=== PATIENT | male | born 1975 | race Caucasian/White ===

== ENCOUNTER 2016-06-24 08:23 | Emergency (ER) | payer OTHER ==
[2016-06-24] MEDS ORDERED: LIDOCAINE 1%/EPINEPHRINE INJ 20 ML VIAL INJ ONE (08:47)
[2016-06-24] MEDS ORDERED: OXYCODONE-ACETAMINOPHEN 5-325 MG TABLET PO ONE (08:47)
--- NOTE | 2016-06-24 08:49 | ER Document Report ---
HPI - HPI Patient complains to provider of: wrist laceration Onset: Just prior to arrival Onset/Duration: Sudden Quality of pain: Sharp Pain Level: 5 Context: Patient states he was using a handsaw to prune some bushes. Patient states that it was a new small and he cut into his left wrist. Patient states his tetanus is currently up-to-date. Patient reports difficulty with fully extending his left hand. Associated Symptoms: Other - Left wrist laceration Exacerbated by: Movement Relieved by: Denies Similar symptoms previously: No Recently seen / treated by doctor: No - ROS ROS below otherwise negative: Yes Systems Reviewed and Negative: Yes All other systems reviewed and negative - CONSTITUTIONAL Constitutional: DENIES: Fever, Chills - MUSCULOSKELETAL Musculoskeletal: REPORTS: Extremity pain - DERM Skin Color: Normal Skin Problems: Laceration Past Medical History - General Information source: Patient - Social History Smoking Status: Never Smoker Chew tobacco use (# tins/day): No Frequency of alcohol use: None Drug Abuse: None 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 Lives with: Family Family History: Reviewed & Not Pertinent Patient has suicidal ideation: No Patient has homicidal ideation: No - Past Medical History Cardiac Medical History: Reports: Hx Hypertension Pulmonary Medical History: Reports: Hx Sleep Apnea Endocrine Medical History: Reports: Hx Diabetes Mellitus Type 2 Renal/ Medical History: Denies: Hx Peritoneal Dialysis Surgical Hx: Negative - Immunizations Hx Diphtheria, Pertussis, Tetanus Vaccination: Yes Vertical Provider Document - CONSTITUTIONAL Agree With Documented VS: Yes Exam Limitations: No Limitations General Appearance: WD/WN, No Apparent Distress - INFECTION CONTROL TRAVEL OUTSIDE OF THE [place] IN LAST 30 DAYS: No - HEENT HEENT: Atraumatic, Normocephalic - NECK Neck: Normal Inspection, Supple - RESPIRATORY Respiratory: Breath Sounds Normal, No Respiratory Distress O2 Sat by Pulse Oximetry: 96 - CARDIOVASCULAR Cardiovascular: Regular Rate, Regular Rhythm Pulses: Normal: Radial - MUSCULOSKELETAL/EXTREMETIES Musculoskeletal/Extremeties: MAEW - NEURO Level of Consciousness: Awake, Alert, Appropriate - DERM Integumentary: Warm, Dry, Laceration - Irregular laceration to medial aspect of left wrist Course - Re-evaluation Re-evalutation: 06/24/16 11:19 Patient declines a wound closure without having orthopedic consultation, patient is wanting to have his surgery performed today. Patient does not want to have wound closed and then to have to have a follow-up surgery to repair the injured tendon. Call placed to [facility] for consultation. 06/24/16 11:[address] Fried at [facility], does not feel that patient requires emergent transfer. Recommend suturing wound closed, placing patient on several days of antibiotics and splinting his wrist. Recommends having patient call the office for follow-up appointment. - Vital Signs Vital signs: Temp Pulse Resp BP Pulse Ox 98.1 F 92 18 136/72 H 96 06/24/16 08:32 06/24/16 08:32 06/24/16 08:32 06/24/16 08:32 06/24/16 08:32 - Diagnostic Test Radiology reviewed: Reports reviewed Procedures - Laceration/Wound Repair Left Wrist Wound length (cm): 8.5 Wound's Depth, Shape: Irregular, Flap Anesthetic type: 1% Lidocaine w/epi Wound explored: Contaminated, Foreign body removed - Small bits of debris removed Irrigated w/ Saline (mLs): 1,200 Wound Repaired With: Sutures Suture Size/Type: 5:0, Nylon Number of Sutures: 7 Post-procedure wound care: Sterile dressing applied, Splint applied Post-procedure NV exam normal: No - no change from preprocedure her vascular exam, patient with weakened dorsif Complications: No Discharge - Discharge Clinical Impression: Tendon laceration Laceration of wrist Qualifiers: Encounter type: initial encounter Laterality: left Qualified Code(s): S61.512A - Laceration without foreign body of left wrist, initial encounter Condition: Stable Disposition: HOME, SELF-CARE Instructions: Prophylactic Antibiotic ([facility]), Laceration Care ([facility]), Oral Narcotic Medication ([facility]), Splint Precautions ([facility]), Tendon Laceration Referral ([facility]) Additional Instructions: Return immediately for any new or worsening symptoms Followup with your primary care provider, call tomorrow to make a followup appointment Follow up with an orthopedic hand specialist for further management. Call them today to make a follow-up appointment Your tendon injury will require surgical treatment. An orthopedic hand specialist can perform this procedure for you. Prescriptions: Amox Tr/Potassium Clavulanate [Augmentin 875-125 Tablet] 1 tab PO BID 7 Days Oxycodone HCl/Acetaminophen [Percocet 5-325 mg Tablet] 1 - 2 tab PO ASDIR PRN # 15 tablet PRN Reason: Forms: Return to Work Referrals: PILAR DIAS MD [Primary Care Provider] - Follow up as needed JIL CHILDS DO [ACTIVE STAFF] - Follow up in 3-5 days JORGE FRIED MD [NO LOCAL MD] - Follow up as needed
[2016-06-24] MEDS ORDERED: AMOXICILLIN TR/POT CLAVULANATE 500-125 MG TAB PO ONE (11:46)
[2016-06-24 13:34] VITALS: BP 133/83
== END 2016-06-24 13:38 | disposition home or self-care (01) ==
LOC: ER 08:23
PROC: 0HQEXZZ Repair Left Lower Arm Skin, External Approach (ICD-10-PCS; principal; 2016-06-24)
DX: S61.512A Laceration without foreign body of left wrist, initial encounter (principal); S66.922A Laceration of unspecified muscle, fascia and tendon at wrist and hand level, left hand, initial encounter; W27.0XXA Contact with workbench tool, initial encounter; Y93.H2 Activity, gardening and landscaping; I10 Essential (primary) hypertension; E11.9 Type 2 diabetes mellitus without complications
CPT/HCPCS: 99283; 73110; 12004; J3490

== ENCOUNTER 2016-06-28 11:30 | Day surgery (SDC) | payer OTHER ==
[~2016-06-28 11:30] MED LIST: CEFAZOLIN 2 GM/D5W RTU 2 GM/50 ML RTUPB IV PRN; KETOROLAC TROMETHAMINE 60 MG/2 ML SDV ONE; LIDOCAINE 2% INJ-PF (20 MG/ML) 10 ML AMPUL ONE; METOCLOPRAMIDE HCL INJ/PF 10 MG/2 ML SDV ONE; ONDANSETRON HCL INJ/PF 4 MG/2 ML SDV ONE; PHENYLEPHRINE HCL INJ/PF 10 MG/1 ML SDV ONE; SUCCINYLCHOLINE CHLORIDE INJ 200 MG/10 ML VIAL ONE
[2016-06-28 12:24] LABS: MEAN CORPUSCULAR HEMOGLOBIN 30.8 pg (27.0-33.4); MEAN CORPUSCULAR HGB CONC 34.7 g/dL (32.0-36.0); MEAN CORPUSCULAR VOLUME 89 fl (80-97); RED BLOOD COUNT 5.19 10^6/uL (4.35-5.55); RED CELL DISTRIBUTION WIDTH 13.2 % (11.5-14.0); WHITE BLOOD COUNT 7.7 10^3/uL (4.0-10.5)
[2016-06-28 12:45] LABS: ANION GAP 17 (5-19); BLOOD UREA NITROGEN 21 mg/dL (7-20); CALCIUM 10.3 mg/dL (8.4-10.2); CARBON DIOXIDE 23 mmol/L (22-30); CHLORIDE 105 mmol/L (98-107); CREATININE RESULT 0.95 mg/dL (0.52-1.25); GLUCOSE 94 mg/dL (75-110); POTASSIUM 5.1 mmol/L (3.6-5.0); SODIUM 144.8 mmol/L (137-145)
[2016-06-28] MEDS ORDERED: BUPIVACAINE HCL 0.5 % INJ/PF 30 ML SDV ONE (14:33)
[2016-06-28] MEDS ORDERED: FENTANYL CITRATE INJ/PF 250 MCG/5 ML AMPULE ONE (14:39)
[2016-06-28] MEDS ORDERED: PROPOFOL INJ 200 MG/20 ML VIAL IV ONE (14:40)
[2016-06-28] MEDS ORDERED: MIDAZOLAM 2 MG/2 ML INJ ONE (14:40)
[2016-06-28] MEDS ORDERED: FENTANYL CITRATE INJ/PF 100 MCG/2 ML AMPUL ONE ×2 (14:42→16:59)
[2016-06-28] MEDS ORDERED: BACITRACIN INJ 50,000 UNIT VIAL ONE (15:04)
[2016-06-28] MEDS ORDERED: MORPHINE SULFATE 10 MG/ML INJ IV PRN ×2 (15:20→17:06)
[2016-06-28] MEDS ORDERED: PROMETHAZINE HCL INJ 25 MG/1 ML VIAL IV PRN ×2 (15:20)
[2016-06-28] MEDS ORDERED: MEPERIDINE HCL/PF INJ 25 MG/1 ML DISP.SYRIN IV PRN (15:20)
[2016-06-28] MEDS ORDERED: FENTANYL CITRATE INJ/PF 100 MCG/2 ML AMPUL IV PRN ×3 (15:20)
[2016-06-28] MEDS ORDERED: DIPHENHYDRAMINE HCL 50 MG/ML VIAL IV PRN (15:20)
[2016-06-28] MEDS ORDERED: ACETAMINOPHEN 100 ML IV ONE (15:32)
--- NOTE | 2016-06-28 17:05 | Operative Report ---
Operative Report DATE OF SURGERY: 06/28/16 PREOPERATIVE DIAGNOSIS: Left Wrist Laceration POSTOPERATIVE DIAGNOSIS: Left Wrist ECRL/ECRB/EPB Laceration. Partial Superficial Radial Nerve Laceration OPERATION: Exploration Left Wrist. Repair of EPB/ECRL/ECRB Zone VII. Repair of Superficial Radial Nerve w/ Nerv Conduit. Wound Closure SURGEON: JIL CHILDS ANESTHESIA: GA COMPLICATIONS: None ESTIMATED BLOOD LOSS: Minimal PROCEDURE: Indication for above procedure: 41-year-old male who sustained a inadvertent laceration to his left wrist. Patient was seen at the emergency room where the area was debrided and loosely closed. Patient was given IV antibiotics tetanus is started on Augmentin. He followed up at my office at which point we discussed physical examination findings and treatment options. After discussing operative versus nonoperative intervention the joint decision was made to proceed with operative exploration with repair as indicated. Procedure In Detail: Patient was seen and evaluated in the preoperative holding area. The LEFT upper extremity was initialized and marked. Patient received 2g of Ancef IV for bacterial prophylaxis. Patient was taken back to the operative room where transferred to the operative table and placed under general anesthesia. Once they were adequately anesthetized a nonsterile tourniquet was placed on the upper extremity. A surgical team debriefing was performed ensuring all instrumentation was available, the surgical procedure was discussed with possible concerns reviewed. The upper extremity was prepped with chlorhexidine and alcohol and draped in a sterile fashion. A timeout was done identifying correct patient, procedure and extremity everyone in attendance agree with this and verbalized no concerns. The extremity was exsanguinated the tourniquet was inflated to 200 mmHg. Patient's laceration was opened proximally and distally by 1 cm. The intervening stitches were removed. Blunt dissection was performed down to the level of the extensor retinaculum. There is no involvement of the extensor retinaculum of the fourth dorsal compartment. Identification of the EPL proximally and distally demonstrated no evidence of EPL disruption. There was complete disruption of the second dorsal compartment components ECRL/ECRB. There is complete disruption of the EPB as well. No evidence of disruption of the APL or radial artery. There was partial laceration of the ulnar-most branch of the superficial radial nerve. I first repaired the ECRB/ECRL the proximal stump was identified and retracted into the wound. Wrist was held in extension while a Silverskiold suture was utilized with 3-0 Ethibond. This provided adequate fixation my extensor repair against gravity there was ample forced. The first dorsal compartment was opened and a repaired the EPB once again with a 3-0 Ethibond utilizing a Silverskiold suture configuration. I then proceeded with superficial radial nerve repair. Partial disruption of the superficial radial nerves ulnar aspect was identified. Given the location and high propensity for neuropathic pain I proceeded with placement of a Axogen 3 x 15 mm nerve connector to prophylactically protect against neuropathic pain and to allow possible nerve regeneration. The nerve connector was secured with 6-0 nylon suture in a horizontal mattress configuration. The wound was copiously irrigated with normal saline. The skin edges were irregular with portions that were not viable these edges were excised to a smooth contour. The wound was then closed with interrupted 3-0 nylon suture. 20 mL of 0.5% Marcaine without epinephrine was injected for postoperative pain control. We will was dressed with Xeroform 4 x 4's and patient was placed in a volar splint with the wrist at 20 of extension and a thumb spica extension of the thumb CMC/MCP joint at neutral position and the IP joint free. Tourniquet was deflated. Patient had normal capillary refill less than 2 seconds. Sponge counts, instrument counts, needle counts counts were correct. Patient was then awoken from anesthesia. Transferred from the operating room table to the operating room stretcher. There was no intraoperative complications patient tolerated procedure well stable to PACU. Postoperative plan: Patient will follow-up in the office in 10-14 days at which point we will proceed with wound check. Patient will be set up for occupational therapy and will begin as per Ghazala protocol extensor tendon repair zone VII.
[2016-06-28] MEDS ORDERED: ONDANSETRON HCL INJ/PF 4 MG/2 ML SDV IV PRN (17:06)
[2016-06-28] MEDS ORDERED: OXYCODONE-ACETAMINOPHEN 5-325 MG TABLET PO PRN (17:06)
--- NOTE | 2016-06-28 17:06 | PDOC DISCHARGE SUMMARY ---
Discharge Summary (SDC) - Discharge Final Diagnosis: Extensor Tendon Laceration Left Wrist Date of Surgery: 06/28/16 Discharge Date: 06/28/16 Condition: Good Treatment or Instructions: Schedule Follow Up w/ Dr. Warner Chance @ [facility] for Surgery to be seen in 10-14 days or as scheduled [place]: [place]: [place]: Keep splint clean/dry/intact. Ice and elevate May begin finger range of motion attempting to make full fist. Stool softener of choice when on pain medication. Prescriptions: Oxycodone HCl/Acetaminophen [Percocet 7.5-325 Mg Tablet] 1 each PO Q4 #45 tablet Referrals: PILAR DIAS MD [Primary Care Provider] - Discharge Diet: As Tolerated Respiratory Treatments at Home: Deep Breathing/Coughing Discharge Activity: No Lifting Over 10 Pounds, No Lifting/Push/Pulling Report the Following to Your Physician Immediately: Fever over 101 Degrees, Unusual Bleeding, Redness, Swelling, Warmth, Increased Soreness, Drainage-Foul Smelling, Numbness, Tingling Sensation
[2016-06-28 18:51] VITALS: BP 117/67
--- NOTE | 2016-06-28 18:56 | EKG REPORT ---
SEVERITY:- NORMAL ECG - SINUS RHYTHM : Confirmed by: Scott Yepez MD 28-Jun-2016 18:55:33
== END 2016-06-28 18:55 | disposition home or self-care (01) ==
LOC: OROUT 11:30
PROVIDERS: ATTEND Orthopaedic Surgery
PROC: 01U607Z Supplement Radial Nerve with Autologous Tissue Substitute, Open Approach (ICD-10-PCS; 2016-06-28)
PROC: 0LQ60ZZ Repair Left Lower Arm and Wrist Tendon, Open Approach (ICD-10-PCS; principal; 2016-06-28 14:00)
DX: S56.302A Unspecified injury of extensor or abductor muscles, fascia and tendons of left thumb at forearm level, initial encounter (principal); S64.22XA Injury of radial nerve at wrist and hand level of left arm, initial encounter; S61.512A Laceration without foreign body of left wrist, initial encounter; W31.2XXA Contact with powered woodworking and forming machines, initial encounter; I10 Essential (primary) hypertension; E78.00 Pure hypercholesterolemia, unspecified; E11.9 Type 2 diabetes mellitus without complications; Z79.899 Other long term (current) drug therapy; Z88.1 Allergy status to other antibiotic agents; Z87.892 Personal history of anaphylaxis
CPT/HCPCS: 36415; 82962; 85027; 80048; 83036; 93005; 93010; 25275; 64910; J2250; J3490 ×2; J1885; J3010; J2765; J2370; J0330; J2405; J2704; J0690; J0131; 1810

== ENCOUNTER 2017-12-09 22:38 | Emergency (ER) | payer BC, OTHER ==
[2017-12-10] MEDS ORDERED: NORMAL SALINE 1000 ML 1,000 ML IV ONE (02:23)
--- NOTE | 2017-12-10 02:24 | ER Document Report ---
ED General - General Chief Complaint: Nausea Stated Complaint: DIZZINESS, NAUSEA Time Seen by Provider: 12/10/17 01:54 Notes: Patient is a 42-year-old male with a past medical history of hypertension, hyperlipidemia, diabetes, morbid obesity who presents with an episode of lightheadedness and nausea that started just prior to arrival. The patient states that he had one similar episode a week ago that did spontaneously resolve but denies any previous history. He states that he checked his blood sugar at home and noticed that it was moderately elevated but usually does not develop symptoms at this level of elevation of his glucose. He denies any associated chest pain, shortness of breath, vomiting, focal weakness, numbness, headache or altered mental status. He has not contacted his primary care doctor regarding today's concerns. Nothing has improved or worsened his symptoms since onset. His notes that he has been complaining of some dehydration over the last several days. TRAVEL OUTSIDE OF THE [place] IN LAST 30 DAYS: No - Related Data Allergies/Adverse Reactions: ciprofloxacin [From Cipro] Allergy (Verified 06/24/16 08:32) ciprofloxacin HCl [From Cipro] Allergy (Verified 06/27/16 17:29) Difficulty breathing Past Medical History - General Information source: Patient - Social History Smoking Status: Never Smoker Frequency of alcohol use: None Drug Abuse: None Lives with: Spouse/Significant other Family History: Reviewed & Not Pertinent - Past Medical History Cardiac Medical History: Reports: Hx Hypercholesterolemia, Hx Hypertension Denies: Hx Coronary Artery Disease, Hx Heart Attack Pulmonary Medical History: Reports: Hx Sleep Apnea Denies: Hx Asthma, Hx Bronchitis, Hx COPD, Hx Pneumonia Neurological Medical History: Denies: Hx Cerebrovascular Accident, Hx Seizures Endocrine Medical History: Reports: Hx Diabetes Mellitus Type 2 Renal/ Medical History: Denies: Hx Peritoneal Dialysis Musculoskeletal Medical History: Denies Hx Arthritis - Immunizations Hx Diphtheria, Pertussis, Tetanus Vaccination: Yes Review of Systems - Review of Systems Notes: Constitutional: Negative for fever. HENT: Negative for sore throat. Eyes: Negative for visual changes. Cardiovascular: Negative for chest pain. Positive for lightheadedness Respiratory: Negative for shortness of breath. Gastrointestinal: Negative for abdominal pain, vomiting or diarrhea. Genitourinary: Negative for dysuria. Musculoskeletal: Negative for back pain. Skin: Negative for rash. Neurological: Negative for headaches, weakness or numbness. 10 point ROS negative except as marked above and in HPI. Physical Exam - Vital signs Vitals: Temp Pulse Resp BP Pulse Ox 99.0 F 107 H 20 127/76 H 93 12/09/17 23:14 12/09/17 23:14 12/09/17 23:14 12/09/17 23:14 12/09/17 23:14 Interpretation: Tachycardic Notes: PHYSICAL EXAMINATION: GENERAL: Well-appearing, well-nourished and in no acute distress. HEAD: Atraumatic, normocephalic. EYES: Pupils equal round and reactive to light, extraocular movements intact, sclera anicteric, conjunctiva are normal. ENT: nares patent, oropharynx clear without exudates. Dry mucous membranes. NECK: Normal range of motion, supple without lymphadenopathy LUNGS: Breath sounds clear to auscultation bilaterally and equal. No wheezes rales or rhonchi. HEART: Regular rate and rhythm without murmurs ABDOMEN: Soft, nontender, normoactive bowel sounds. No guarding, no rebound. No masses appreciated. EXTREMITIES: Normal range of motion, no pitting or edema. No cyanosis. NEUROLOGICAL: No focal neurological deficits. Moves all extremities spontaneously and on command. PSYCH: Normal mood, normal affect. SKIN: Warm, Dry, normal turgor, no rashes or lesions noted. Course - Re-evaluation Re-evalutation: 12/10/17 03:52 Presentation of lightheadedness and near syncope. Patient normotensive, alert, without focal neurologic deficits at time of arrival. Denies syncope was during exertion. No preceding symptoms of palpitations, chest pain, or shortness of breath. Patient asymptomatic at time of arrival. EKG is without evidence of HCOM , right heart strain, ST changes to suggest ischemia, prolong QTc, delta wave, epsilon wave, or Brugada syndrome. Patient denies any family history of sudden cardiac , personal history of of structural heart disease. Patient denies any symptoms to suggest an acute PE, RI, TAD, SAH, seizure, or acute GI bleed as the etiology of their syncope today. On exam, no murmurs to suggest critical aortic stenosis as possible etiology. Labs demonstrate moderate dehydration but are otherwise unremarkable. Patient has improvement of his initial tachycardia and lightheadedness since receiving IV fluids. Based on overall clinical history, exam findings, vitals, and patients appearance, I feel it is safe for patient to be discharged home at this time with close outpatient follow -up and strict return precautions. Patient is in agreement with this plan, has verbalized indications for return to ED, and questions have been answered. - Vital Signs Vital signs: Temp Pulse Resp BP Pulse Ox 99.0 F 107 H 20 127/76 H 93 12/09/17 23:14 12/09/17 23:14 12/09/17 23:14 12/09/17 23:14 12/09/17 23:14 - Laboratory Result Diagrams: 12/10/17 02:37 12/10/17 02:37 Laboratory results interpreted by me: 12/09/17 12/10/17 23:16 02:37 Sodium 146.1 H Chloride 110 H BUN 21 H Glucose 135 H POC Glucose 203 H - EKG Interpretation by Me Additional EKG results interpreted by me: 12/10/17 03:52 Sinus rhythm. Rate 91. No ST elevations or depressions. QTC is 424. Discharge - Discharge Clinical Impression: Lightheadedness, Dehydration, Hyperglycemia Condition: Good Disposition: HOME, SELF-CARE Additional Instructions: You were seen today for lightheadedness/dizziness. The exact cause of your symptoms is unclear but your workup here is reassuring without any concerning findings. Please follow closely with your primary care physician in the next 1- 3 days. Return if you pass out, have additional episodes of lightheadedness, develop weakness/numbness, have persistent vomiting, chest pain, shortness of breath or any other symptoms that are concerning to you Referrals: PILAR DIAS MD [Primary Care Provider] - Follow up as needed
[2017-12-10 02:46] LABS: HEMATOCRIT 43.6 % (37.9-51.0); MEAN CORPUSCULAR HEMOGLOBIN 30.6 pg (27.0-33.4); MEAN CORPUSCULAR HGB CONC 34.5 g/dL (32.0-36.0); MEAN CORPUSCULAR VOLUME 89 fl (80-97); PLATELET COUNT 300 10^3/uL (150-450); RED BLOOD COUNT 4.91 10^6/uL (4.35-5.55); RED CELL DISTRIBUTION WIDTH 13.7 % (11.5-14.0); WHITE BLOOD COUNT 8.1 10^3/uL (4.0-10.5)
[2017-12-10 03:25] LABS: ANION GAP 14 (5-19); BLOOD UREA NITROGEN 21 mg/dL (7-20); CALCIUM 9.6 mg/dL (8.4-10.2); CARBON DIOXIDE 22 mmol/L (22-30); CHLORIDE 110 mmol/L (98-107); GLUCOSE 135 mg/dL (75-110); POTASSIUM 4.6 mmol/L (3.6-5.0); SODIUM 146.1 mmol/L (137-145)
[2017-12-10 04:23] VITALS: BP 126/68
--- NOTE | 2017-12-10 09:57 | EKG REPORT ---
SEVERITY:- NORMAL ECG - SINUS RHYTHM : Confirmed by: Jude Nuno 10-Dec-2017 09:56:22
== END 2017-12-10 04:21 | disposition home or self-care (01) ==
LOC: ER 22:38
DX: R42 Dizziness and giddiness (principal); E86.0 Dehydration; R11.0 Nausea; E11.65 Type 2 diabetes mellitus with hyperglycemia; E66.01 Morbid (severe) obesity due to excess calories; E78.00 Pure hypercholesterolemia, unspecified; I10 Essential (primary) hypertension; Z88.3 Allergy status to other anti-infective agents
CPT/HCPCS: 93005; 99284; 96360; 36415; 82962; 85027; 80048; 84484; 93010; J7030

== ENCOUNTER 2020-03-01 13:17 | Inpatient (IN) | payer BC ==
[2020-03-01] MEDS ORDERED: NORMAL SALINE 1000 ML 3,000 ML IV ONE (14:09)
--- NOTE | 2020-03-01 14:24 | ER Document Report ---
ED General - General Chief Complaint: Chest Pain Stated Complaint: CHEST PAIN/SHORTNESS OF BREATH Primary Care Provider: PILAR DIAS MD [Primary Care Provider] - Follow up as needed Notes: Patient is a 44-year-old white male with a history of diabetes, hypertension and obesity who presents the emergency department today with a chief complaint of chest pain that began yesterday at 4 PM. States he had gone to town with his when he started having sudden sharp pains in the left chest. He states that later that night he started having a dry cough. He reports the pain is worse with coughing and deep inspiration. Since the shooting pain up and down the left chest wall area. He reports no known fevers at home but states he was told he had one upon arrival here. He did recently travel to [place] but was alone in a vehicle and states he was not around anybody. He adds that 3 coworkers were recently positive for COVID-19 but he states he is not been around them unprotected without a mask or in significant close contact. He denies any shortness of breath but admits to splinting due to the pain. Reports pain is been constant since yesterday. Notes that the intensity waxes and wanes. TRAVEL OUTSIDE OF THE [place] IN LAST 30 DAYS: No - Related Data Allergies/Adverse Reactions: ciprofloxacin [From Cipro] Allergy (Verified 03/01/20 14:17) ciprofloxacin HCl [From Cipro] Allergy (Verified 03/01/20 14:17) Difficulty breathing Past Medical History - Social History Smoking Status: Unknown if Ever Smoked Family History: Reviewed & Not Pertinent - Past Medical History Cardiac Medical History: Reports: Hx Hypercholesterolemia, Hx Hypertension Denies: Hx Coronary Artery Disease, Hx Heart Attack Pulmonary Medical History: Reports: Hx Sleep Apnea Denies: Hx Asthma, Hx Bronchitis, Hx COPD, Hx Pneumonia Neurological Medical History: Denies: Hx Cerebrovascular Accident, Hx Seizures Endocrine Medical History: Reports: Hx Diabetes Mellitus Type 2 Renal/ Medical History: Denies: Hx Peritoneal Dialysis Musculoskeletal Medical History: Denies Hx Arthritis - Immunizations Hx Diphtheria, Pertussis, Tetanus Vaccination: Yes Review of Systems - Review of Systems Constitutional: Fever EENT: denies: Throat pain Cardiovascular: denies: Dyspnea Respiratory: Cough Gastrointestinal: denies: Abdominal pain Genitourinary: denies: Pain Male Genitourinary: denies: Testicular pain Musculoskeletal: denies: Joint swelling Skin: denies: Lesions Hematologic/Lymphatic: denies: Blood clots Neurological/Psychological: denies: Gait changes Physical Exam - Vital signs Vitals: Temp Pulse Resp BP Pulse Ox 100.3 F 140 H 22 H 150/90 H 94 03/01/20 13:37 03/01/20 13:37 03/01/20 13:37 03/01/20 13:37 03/01/20 13:37 - General General appearance: Appears well, Alert In distress: None - Respiratory Respiratory status: No respiratory distress Chest status: Nontender Breath sounds: Normal Chest palpation: Normal - Cardiovascular Rhythm: Regular Heart sounds: Normal auscultation Murmur: No - Extremities General upper extremity: Normal inspection, Nontender, Normal color, Normal ROM, Normal temperature General lower extremity: Normal inspection, Nontender, Normal color, Normal ROM, Normal temperature, Normal weight bearing. No: Sloane's sign - Neurological Neuro grossly intact: Yes Cognition: Normal Orientation: AAOx4 - Psychological Associated symptoms: Normal affect, Normal mood - Skin Skin Temperature: Warm Skin Moisture: Dry Skin Color: Normal Course - Re-evaluation Re-evalutation: 03/01/20 14:58 EKG: Sinus tachycardia at 139 bpm. Normal axis. Normal intervals. No STEMI. Interpreted by myself in conjunction with ED attending. 03/01/20 14:59 03/01/20 16:06 Patient with some desaturations to 93% on room air without oxygen. He appears uncomfortable without the oxygenation. With 2 L via nasal cannula he increases to 97 to 98% on 2 L. He reports that he feels much comfortable here. We tried to take him off oxygen and he could not tolerate it it was beyond his comfort. His x-ray shows what appears to be a bilateral pneumonia per radiologist. He is got a slight white count with a left shift. His metabolic profile only showing hyperglycemia as expected with his history of diabetes. His flu swabs were negative. He is pending COVID-19 testing. He was given Rocephin and Zithromax in the ED for pneumonia pending the results of COVID-19 testing. He did meet Sirs criteria on intake and has been designated sepsis. Sepsis protocol initiated. Patient received 3 L normal saline. His lactic acid was normal. P ending blood cultures. Despite fluids patient still remains tachycardic and uncomfortable off of oxygen. Suspect admission will be appropriate for further care and management. I spoke with Dr. Mcgovern and SCREEN MAKING SUPERVISOR Ana Santiago. They will accept the patient for admission. Patient is currently stable for admission at this time. 03/01/20 16:07 03/01/20 16:08 - Vital Signs Vital signs: Temp Pulse Resp BP Pulse Ox 99.2 F 140 H 32 H 146/96 H 96 03/01/20 15:55 03/01/20 13:37 03/01/20 15:01 03/01/20 15:01 03/01/20 15:01 - Laboratory Result Diagrams: 03/01/20 13:58 03/01/20 13:58 Laboratory results interpreted by me: 03/01/20 03/01/20 13:58 13:58 WBC 12.1 H Absolute Neuts (auto) 9.5 H Seg Neutrophils % 78.6 H Sodium 135.4 L Carbon Dioxide 21 L Glucose 283 H Discharge - Discharge Clinical Impression: Person under investigation for COVID-19 Sepsis Qualifiers: Sepsis type: sepsis due to unspecified organism Sepsis acute organ dysfunction status: with acute organ dysfunction Severe sepsis acute organ dysfunction type: acute respiratory failure Acute respiratory failure type: with hypoxia Severe sepsis shock status: without septic shock Qualified Code(s): A41.9 - Sepsis, unspecified organism Pneumonia Qualifiers: Pneumonia type: due to unspecified organism Laterality: bilateral Lung loca tion: unspecified part of lung Qualified Code(s): J18.9 - Pneumonia, unspecified organism Condition: Serious Disposition: ADMITTED INPATIENT Admitting Provider: Froilan (Hospitalist) Unit Admitted: Telemetry Referrals: PILAR DIAS MD [Primary Care Provider] - Follow up as needed
[2020-03-01 14:29] LABS: A TYPE INFLUENZA AG NEGATIVE (NEGATIVE); B INFLUENZA AG NEGATIVE (NEGATIVE)
[2020-03-01] MEDS ORDERED: ACETAMINOPHEN 325 MG TABLET PO ONE (14:42)
[2020-03-01 14:43] LABS: ABSOLUTE BASOPHILS # (AUTO) 0.1 10^3/uL (0.0-0.2); ABSOLUTE EOSINOPHILS # (AUTO) 0.1 10^3/uL (0.0-0.6); ABSOLUTE LYMPHOCYTES (AUTO) 1.6 10^3/uL (0.5-4.7); ABSOLUTE MONOCYTES (AUTO) 0.8 10^3/uL (0.1-1.4); ABSOLUTE NEUT (AUTO) 9.5 10^3/uL (1.7-8.2); EOSINOPHILS % (AUTO) 0.5 % (0-6); HEMATOCRIT 44.9 % (37.9-51.0); HEMOGLOBIN 16.2 g/dL (13.5-17.0); LYMPHOCYTES % (AUTO) 13.3 % (13-45); MEAN CORPUSCULAR HEMOGLOBIN 31.5 pg (27.0-33.4); MEAN CORPUSCULAR VOLUME 87 fl (80-97); MONOCYTES % (AUTO) 6.6 % (3-13); PLATELET COUNT 280 10^3/uL (150-450); RED BLOOD COUNT 5.14 10^6/uL (4.35-5.55); RED CELL DISTRIBUTION WIDTH 13.7 % (11.5-14.0); SEGMENTED NEUTROPHILS % (AUTO) 78.6 % (42-78); TOTAL CELLS COUNTED % (AUTO) 100 %; WHITE BLOOD COUNT 12.1 10^3/uL (4.0-10.5)
[2020-03-01 14:47] LABS: ALBUMIN 4.4 g/dL (3.5-5.0); ALKALINE PHOSPHATASE 112 U/L (38-126); ANION GAP 14 (5-19); ASPARTATE AMINO TRANSFERASE 23 U/L (17-59); BILIRUBIN,DIRECT 0.4 mg/dL (0.0-0.4); BILIRUBIN,TOTAL 1.3 mg/dL (0.2-1.3); BLOOD UREA NITROGEN 16 mg/dL (7-20); CALCIUM 9.8 mg/dL (8.4-10.2); CARBON DIOXIDE 21 mmol/L (22-30); CHLORIDE 100 mmol/L (98-107); CREATINE KINASE 55 U/L (55-170); GLUCOSE 283 mg/dL (75-110); POTASSIUM 4.2 mmol/L (3.6-5.0); TOTAL PROTEIN 7.8 g/dL (6.3-8.2)
--- NOTE | 2020-03-01 15:23 | RADIOLOGY REPORT (SQ) ---
EXAM DESCRIPTION: CHEST SINGLE VIEW IMAGES COMPLETED DATE/TIME: 03/01/2020 2:41 pm REASON FOR STUDY: chest pain COMPARISON: None. TECHNIQUE: Single frontal radiographic view of the chest acquired. NUMBER OF VIEWS: One view. LIMITATIONS: None. FINDINGS: LUNGS AND PLEURA: No pneumothorax. Bibasilar patchy airspace opacities, left greater than right. . No significant pleural effusion. MEDIASTINUM AND HILAR STRUCTURES: No contour abnormalities. HEART AND VASCULAR STRUCTURES: Heart upper limits of normal size. BONES: No acute findings. HARDWARE: None in the chest. OTHER: No other significant finding. IMPRESSION: Bibasilar patchy airspace opacities, left greater than right. . No significant pleural effusion. TECHNICAL DOCUMENTATION: JOB ID: [id number] [place]-72 2010 [employer]- All Rights Reserved Reading location - IP/workstation name: [email or web address]
[2020-03-01] MEDS ORDERED: CEFTRIAXONE 1 GM/D5W RTU 1 GM/50 ML RTUPB IV ONE (15:32)
[2020-03-01] MEDS ORDERED: AZITHROMYCIN INJ 500 MG VIAL IV ONE (15:32)
[2020-03-01 15:50] LABS: CREATINE KINASE MB 0.36 ng/mL (<4.55)
[2020-03-01 15:52] LABS: TROPONIN I < 0.012 ng/mL
[2020-03-01] MEDS ORDERED: DEXTROSE 40% GEL 15 GM TUBE PO PRN ×2 (16:15)
[2020-03-01] MEDS ORDERED: GLUCAGON,HUMAN RECOMB 1 MG INJ IM PRN (16:15)
[2020-03-01] MEDS ORDERED: DEXTROSE 50%-WATER 25 GM/50 ML DISP.SYRIN IV PRN ×2 (16:15)
[2020-03-01 16:34] LABS: C-REACTIVE PROTEIN 42.5 mg/L (<10.0)
[2020-03-01] MEDS ORDERED: ALBUTEROL SULFATE 0.083% NEB 2.5 MG/3 ML AMPUL NEB PRN (17:35)
[2020-03-01] MEDS ORDERED: ACETAMINOPHEN 325 MG TABLET PO PRN (17:35)
[2020-03-01] MEDS ORDERED: NORMAL SALINE 1000 ML 1,000 ML IV PRN (17:35)
[2020-03-01] MEDS ORDERED: GUAIFENESIN SYRP 200 MG/10 ML UDC PO PRN (17:35)
[2020-03-01] MEDS ORDERED: HYDRALAZINE HCL INJ/PF 20 MG/1 ML SDV IV PRN (17:47)
--- NOTE | 2020-03-01 17:51 | PDOC H&P ---
History of Present Illness Admission Date/PCP: 03/01/20 16:44 PILAR DIAS MD Patient complains of: shortness of breath, chest pain w/ breathing History of Present Illness: ANSHU DAN is a 44 year old male with a past medical history significant for DM 2, hypertension, hyperlipidemia, and obesity who presented to the emergency department with a complaint of 1 day of progressively worsening shortness of breath and chest discomfort upon deep inspiration and cough. He also reports nonproductive cough. Low-grade fever noted upon arrival to the emergency department. He otherwise denies chest pain, palpitations, orthopnea, abdominal pain, nausea vomiting diarrhea. He does confirm multiple coworkers have tested positive for coronavirus within the last week. Evaluation emergency department revealed sepsis with fever, tachycardia, tachypnea, leukocytosis, and PNA on CXR. He has provided IV fluids, IV Rocephin and azithromycin. He is referred to the hospitalist service for evaluation and management of the above stated complaints and findings. Past Medical History Cardiac Medical History: Reports: Hyperlipidema, Hypertension Denies: Coronary Artery Disease, Myocardial Infarction Pulmonary Medical History: Reports: Sleep Apnea Denies: Asthma, Bronchitis, Chronic Obstructive Pulmonary Disease (COPD), Pneumonia EENT Medical History: Reports: None Neurological Medical History: Denies: Ischemic CVA, Seizures Endocrine Medical History: Reports: Diabetes Mellitus Type 2, Obesity Renal/ Medical History: Reports: None Malignancy Medical History: Reports: None Musculoskeltal Medical History: Denies: Arthritis Skin Medical History: Reports: None Psychiatric Medical History: Reports: None Traumatic Medical History: Reports: None Hematology: Denies: Anemia Infectious Medical History: Reports: None Past Surgical History Past Surgical History: Reports: Orthopedic Surgery Social History Information Source: Patient Lives with: Family Smoking Status: Never Smoker Frequency of Alcohol Use: Occasional Hx Recreational Drug Use: No Drugs: None Hx Prescription Drug Abuse: No - Advance Directive Resuscitation Status: Full Code Surrogate healthcare decision maker:: Patient's . Family History Family History: Reviewed & Not Pertinent Parental Family History Reviewed: Yes Children Family History Reviewed: Yes Sibling(s) Family History Reviewed.: Yes Medication/Allergy Home Medications: Amoxicillin/Potassium Clav [Amox-Clav 875-125 mg Tablet] 1 each PO BID 06/27/16 Ergocalciferol (Vitamin D2) [Vitamin D2] 1.25 mg PO ASDIR PRN 06/27/16 Fluticasone Propionate [Flonase Nasal Clayton 50 Mcg/Clayton 16 gm] 1 spray NASL DAILY PRN 06/27/16 Gemfibrozil 600 mg PO BID 06/27/16 Linagliptin [Tradjenta] 5 mg PO DAILY 06/27/16 Lisinopril 10 mg PO DAILY 06/27/16 Rosuvastatin Calcium 20 mg PO DAILY 06/27/16 Glipizide [Glucotrol Xl 2.5 mg Tab.er] 5 mg PO BID 06/28/16 Oxycodone HCl/Acetaminophen [Percocet 7.5-325 Mg Tablet] 1 each PO Q4 #45 tablet 06/28/16 Phentermine HCl 37.5 mg PO DAILY 06/28/16 Allergies/Adverse Reactions: ciprofloxacin [From Cipro] Allergy (Verified 03/01/20 14:17) ciprofloxacin HCl [From Cipro] Allergy (Verified 03/01/20 14:17) Difficulty breathing Review of Systems Constitutional: PRESENT: anorexia, fatigue. ABSENT: chills, fever(s), hea dache(s), weight gain, weight loss Eyes: ABSENT: visual disturbances Ears: ABSENT: hearing changes Cardiovascular: ABSENT: chest pain, dyspnea on exertion, edema, orthropnea, palpitations Respiratory: PRESENT: cough, dyspnea, other - Pleuritic chest pain. ABSENT: hemoptysis Gastrointestinal: PRESENT: abdominal pain. ABSENT: constipation, diarrhea, hematemesis, hematochezia, nausea, vomiting Genitourinary: ABSENT: dysuria, hematuria Musculoskeletal: ABSENT: joint swelling Integumentary: ABSENT: rash, wounds Neurological: ABSENT: abnormal gait, abnormal speech, confusion, dizziness, focal weakness, syncope Psychiatric: ABSENT: anxiety, depression, homidical ideation, suicidal ideation Endocrine: ABSENT: cold intolerance, heat intolerance, polydipsia, polyuria Hematologic/Lymphatic: ABSENT: easy bleeding, easy bruising Physical Exam Vital Signs: Temp Pulse Resp BP Pulse Ox 99.2 F 140 H 32 H 146/96 H 96 03/01/20 15:55 03/01/20 13:37 03/01/20 15:01 03/01/20 15:01 03/01/20 15:01 Intake & Output 02/29/20 03/01/20 03/02/20 06:59 06:59 06:59 Intake Total 50 Balance 50 Weight 124.2 kg General appearance: PRESENT: no acute distress, cooperative, obese, well- developed, well-nourished, other Head exam: PRESENT: atraumatic, normocephalic Eye exam: PRESENT: conjunctiva pink, EOMI, PERRLA. ABSENT: scleral icterus Mouth exam: PRESENT: dry mucosa, tongue midline Neck exam: ABSENT: carotid bruit, JVD, lymphadenopathy, thyromegaly Respiratory exam: PRESENT: chest wall tenderness - Pleuritic chest pain, clear to auscultation brian, symmetrical, tachypnea - Shallow respirations, unlabored, other - Supplemental oxygen by nasal cannula. ABSENT: rales, rhonchi, wheezes Cardiovascular exam: PRESENT: RRR, +S1, +S2, tachycardia. ABSENT: diastolic murmur, rubs, systolic murmur Vascular exam: PRESENT: normal capillary refill GI/Abdominal exam: PRESENT: normal bowel sounds, soft. ABSENT: distended, guarding, mass, organolmegaly, rebound, tenderness Rectal exam: PRESENT: deferred Extremities exam: PRESENT: full ROM. ABSENT: calf tenderness, clubbing, pedal edema Neurological exam: PRESENT: alert, awake, oriented to person, oriented to place, oriented to time, oriented to situation, CN II-XII grossly intact. ABSENT: motor sensory deficit Psychiatric exam: PRESENT: appropriate affect, normal mood. ABSENT: homicidal ideation, suicidal ideation Skin exam: PRESENT: dry, intact, warm. ABSENT: cyanosis, rash Results Laboratory Results: 03/01/20 13:58 03/01/20 13:58 03/01/20 03/01/20 03/01/20 13:58 13:58 14:41 WBC 12.1 H RBC 5.14 Hgb 16.2 Hct 44.9 MCV 87 MCH 31.5 MCHC 36.0 RDW 13.7 Plt Count 280 Seg Neutrophils % 78.6 H Sodium 135.4 L Potassium 4.2 Chloride 100 Carbon Dioxide 21 L Anion Gap 14 BUN 16 Creatinine 0.77 Est GFR ( Amer) > 60 Glucose 283 H Lactic Acid 1.6 Calcium 9.8 Ferritin Total Bilirubin 1.3 AST 23 Alkaline Phosphatase 112 C-Reactive Protein Total Protein 7.8 Albumin 4.4 Lipase 03/01/20 14:41 WBC RBC Hgb Hct MCV MCH MCHC RDW Plt Count Seg Neutrophils % Sodium Potassium Chloride Carbon Dioxide Anion Gap BUN Creatinine Est GFR ( Amer) Glucose Lactic Acid Calcium Ferritin 346.00 Total Bilirubin AST Alkaline Phosphatase C-Reactive Protein 42.5 H Total Protein Albumin Lipase 224.9 03/01/20 03/01/20 03/01/20 13:58 13:58 14:41 Creatine Kinase 55 CK-MB (CK-2) Cancelled 0.36 Troponin I Cancelled < 0.012 Impressions: Chest X-Ray 03/01/20 00:00 IMPRESSION: Bibasilar patchy airspace opacities, left greater than right. . No significant pleural effusion. Assessment and Plan - Diagnosis (1) Pneumonia Qualifiers: Pneumonia type: due to unspecified organism Laterality: bilateral Lung location: lower lobe of lung Qualified Code(s): J18.9 - Pneumonia, unspecified organism Is this a current diagnosis for this admission?: Yes Plan: Chest x-ray reveals bilateral lower lobe consolidation. Blood cultures pending. Sputum cultures pending Influenza negative. COVID pending. Patient is provided supplemental oxygen as needed maintain saturations greater than 89%. Patient is empirically placed on IV azithromycin and Rocephin. Scheduled and as needed nebulizer treatments. He is placed on Robitussin as needed. Pulmonary toilet is encouraged with incentive spirometer, flutter valve, early ambulation. (2) Person under investigation for COVID-19 Is this a current diagnosis for this admission?: Yes Plan: We will obtain COVID testing. D-dimer, ferritin, LDH are nml. CRP mildly elevated Provide supplemental oxygen as needed maintain saturations greater than 89%. Scheduled and as needed nebulizer treatments. Zinc, vitamin D, vitamin C, and melatonin supplementation. Encourage pulmonary toilet. Isolation precautions. (3) Hypertension Qualifiers: Hypertension type: essential hypertension Qualified Code(s): I10 - Essential (primary) hypertension Is this a current diagnosis for this admission?: Yes Plan: We will resume home medication once reconciled. IV hydralazine as needed for blood pressure control. (4) Diabetes Qualifiers: Diabetes mellitus type: type 2 Diabetes mellitus terminal operations supervisor insulin use: without mcfp use Is this a current diagnosis for this admission?: Yes Plan: Holding oral medications while admitted. Patient is placed on a consistent carb diet. Accu-Cheks before meals and at bedtime with Humalog for sliding scale coverage. Hypoglycemia protocol in place. (5) GISELL (obstructive sleep apnea) Is this a current diagnosis for this admission?: Yes Plan: CPAP nightly and nightly. (6) Sepsis Qualifiers: Sepsis type: sepsis due to unspecified organism Sepsis acute organ dysfunction status: with acute organ dysfunction Severe sepsis acute organ dysfunction type: acute respiratory failure Acute respiratory failure type: with hypoxia Severe sepsis shock status: without septic shock Qualified Code(s): A41.9 - Sepsis, unspecified organism; R65.20 - Severe sepsis without septic shock; J96.01 - Acute respiratory failure with hypoxia Is this a current diagnosis for this admission?: Yes - Time Time Spent with patient: 35 or more minutes Medications reviewed and adjusted accordingly: Yes Anticipated Discharge Disposition: Home, Self Care Anticipated Discharge Timeframe: undetermined - Inpatient Certification Based on my medical assessment, after consideration of the patient's comorbidities, presenting symptoms, or acuity I expect that the services needed warrant INPATIENT care.: Yes I certify that my determination is in accordance with my understanding of Medicare's requirements for reasonable and necessary INPATIENT services [42 CFR 412.3e].: Yes Medical Necessity: Need For Continuous Telemetry Monitoring, Need for Nebulizer Therapy and Monitoring of Response, Risk of Complication if Not Cared For in Hospital
[2020-03-01] MEDS: ASCORBIC ACID 500 MG TABLET PO SCH (18:05)
[2020-03-01] MEDS: ALBUTEROL SULFATE 0.083% NEB 2.5 MG/3 ML AMPUL NEB SCH (20:35)
[2020-03-01] MEDS: INSULIN LISPRO 100 UNIT/ML 3 ML VIAL SUBCUT SCH (22:12)
--- NOTE | 2020-03-01 23:12 | EKG REPORT ---
SEVERITY:- ABNORMAL ECG - SINUS TACHYCARDIA ANTERIOR INFARCT, OLD : Confirmed by: Catalina Bo MD 01-Mar-2020 23:11:45
[2020-03-01] MEDS: NORMAL SALINE 1000 ML 1,000 ML IV PRN (23:30)
[2020-03-01] MEDS ORDERED: IBUPROFEN 600 MG TABLET PO ONE (23:49)
[2020-03-01] MEDS ORDERED: IBUPROFEN 600 MG TABLET ONE (23:54)
[2020-03-02] MEDS: ALBUTEROL SULFATE 0.083% NEB 2.5 MG/3 ML AMPUL NEB SCH ×4 (02:43→19:01)
[2020-03-02 06:46] LABS: HEMOGLOBIN 14.4 g/dL (13.5-17.0); MEAN CORPUSCULAR HEMOGLOBIN 31.1 pg (27.0-33.4); MEAN CORPUSCULAR HGB CONC 35.2 g/dL (32.0-36.0); MEAN CORPUSCULAR VOLUME 88 fl (80-97); PLATELET COUNT 211 10^3/uL (150-450); RED BLOOD COUNT 4.64 10^6/uL (4.35-5.55); RED CELL DISTRIBUTION WIDTH 13.9 % (11.5-14.0); WHITE BLOOD COUNT 10.1 10^3/uL (4.0-10.5)
[2020-03-02 07:03] LABS: ANION GAP 11 (5-19); BLOOD UREA NITROGEN 16 mg/dL (7-20); CALCIUM 8.9 mg/dL (8.4-10.2); CARBON DIOXIDE 20 mmol/L (22-30); CHLORIDE 105 mmol/L (98-107); GLUCOSE 237 mg/dL (75-110)
[2020-03-02] MEDS: NORMAL SALINE 1000 ML 1,000 ML IV PRN ×2 (07:05→15:39)
[2020-03-02] MEDS: INSULIN LISPRO 100 UNIT/ML 3 ML VIAL SUBCUT SCH ×4 (08:01→21:34)
[2020-03-02] MEDS: CHOLECALCIFEROL (D3) 1,000 UNIT (25 MCG) TABLET PO SCH (09:17)
[2020-03-02] MEDS: DEXAMETHASONE SOD PHOS INJ 10 MG/1 ML VIAL IV SCH (09:17)
[2020-03-02] MEDS: ASCORBIC ACID 500 MG TABLET PO SCH ×2 (09:17→17:12)
[2020-03-02] MEDS: ZINC SULFATE 220 MG CAPSULE PO SCH (09:17)
[2020-03-02] MEDS: ENOXAPARIN SODIUM INJ 40 MG/0.4 ML DISP.SYRIN SUBCUT SCH (09:18)
[2020-03-02] MEDS: CEFTRIAXONE 1 GM/D5W RTU 1 GM/50 ML RTUPB IV SCH (09:20)
--- NOTE | 2020-03-02 15:50 | PDOC PROGRESS REPORT ---
Subjective Progress Note for:: 03/02/20 Subjective:: ANSHU DAN is a 44 year old male with a past medical history significant for DM 2, hypertension, hyperlipidemia, and obesity who was admitted 03/01/2020 with sepsis and pneumonia (COVID versus community-acquired. Patient was seen on morning rounds. He was found resting in bed, comfortably, on room air. He reports continued generalized malaise, fatigue, persistent chest discomfort that is worsened by deep breathing, cough, and sudden movements, dyspnea, nonproductive cough, and diarrhea. Patient notes that he is only able to use the incentive spirometer to the 500 chris prior to prolonged coughing fit. He states that he feels essentially unchanged as compared to yesterday. T-max 100.3/24 hours. He otherwise denies cardiac chest pain symptoms, orthopnea, abdominal pain, nausea and vomiting. He has no questions or concerns at this time. No concerns per nursing. Reason For Visit: PNEUMONIA, SUSPECT COVID Physical Exam Vital Signs: Temp Pulse Resp BP Pulse Ox 99.8 F 119 H 16 150/85 H 91 L 03/02/20 10:47 03/02/20 14:15 03/02/20 14:15 03/02/20 10:47 03/02/20 14:15 Intake & Output 03/01/20 03/02/20 03/03/20 06:59 06:59 06:59 Intake Total 3050 1438 Balance 3050 1438 Weight 125.3 kg General appearance: PRESENT: no acute distress, cooperative, obese, well- developed, well-nourished, other - Acutely ill-appearing Head exam: PRESENT: atraumatic, normocephalic Eye exam: PRESENT: conjunctiva pink, EOMI, PERRLA. ABSENT: scleral icterus Mouth exam: PRESENT: moist, tongue midline Respiratory exam: PRESENT: chest wall tenderness - Pleuritic, clear to auscultation brian, symmetrical, tachypnea - Shallow. ABSENT: rales, rhonchi, wheezes Cardiovascular exam: PRESENT: RRR. ABSENT: diastolic murmur, rubs, systolic murmur Pulses: PRESENT: normal dorsalis pedis pul Vascular exam: PRESENT: normal capillary refill Extremities exam: PRESENT: full ROM. ABSENT: calf tenderness, clubbing, pedal edema Neurological exam: PRESENT: alert, awake, oriented to person, oriented to place, oriented to time, oriented to situation, CN II-XII grossly intact. ABSENT: motor sensory deficit Psychiatric exam: PRESENT: appropriate affect, normal mood. ABSENT: homicidal ideation, suicidal ideation Skin exam: PRESENT: dry, intact, warm. ABSENT: cyanosis, rash Results Laboratory Results: 03/02/20 06:10 03/02/20 06:10 03/01/20 03/01/20 03/01/20 13:58 13:58 14:41 WBC 12.1 H RBC 5.14 Hgb 16.2 Hct 44.9 MCV 87 MCH 31.5 MCHC 36.0 RDW 13.7 Plt Count 280 Seg Neutrophils % 78.6 H Sodium 135.4 L Potassium 4.2 Chloride 100 Carbon Dioxide 21 L Anion Gap 14 BUN 16 Creatinine 0.77 Est GFR ( Amer) > 60 Glucose 283 H Lactic Acid 1.6 Calcium 9.8 Ferritin Total Bilirubin 1.3 AST 23 Alkaline Phosphatase 112 C-Reactive Protein Total Protein 7.8 Albumin 4.4 Lipase Blood Type Antibody Screen 03/01/20 03/01/20 03/02/20 14:41 17:40 06:10 WBC 10.1 RBC 4.64 Hgb 14.4 Hct 41.0 MCV 88 MCH 31.1 MCHC 35.2 RDW 13.9 Plt Count 211 Seg Neutrophils % Sodium Potassium Chloride Carbon Dioxide Anion Gap BUN Creatinine Est GFR ( Amer) Glucose Lactic Acid Calcium Ferritin 346.00 Total Bilirubin AST Alkaline Phosphatase C-Reactive Protein 42.5 H Total Protein Albumin Lipase 224.9 Blood Type B POSITIVE Antibody Screen NEGATIVE 03/02/20 06:10 WBC RBC Hgb Hct MCV MCH MCHC RDW Plt Count Seg Neutrophils % Sodium 136.3 L Potassium 4.0 Chloride 105 Carbon Dioxide 20 L Anion Gap 11 BUN 16 Creatinine 0.76 Est GFR ( Amer) > 60 Glucose 237 H Lactic Acid Calcium 8.9 Ferritin Total Bilirubin AST Alkaline Phosphatase C-Reactive Protein Total Protein Albumin Lipase Blood Type Antibody Screen 03/01/20 14:41 Blood Blood Culture (PCR) - Final 03/01/20 03/01/20 03/01/20 13:58 13:58 14:41 Creatine Kinase 55 CK-MB (CK-2) Cancelled 0.36 Troponin I Cancelled < 0.012 03/01/20 17:40 Creatine Kinase CK-MB (CK-2) Troponin I < 0.012 Impressions: Chest X-Ray 03/01/20 00:00 IMPRESSION: Bibasilar patchy airspace opacities, left greater than right. . No significant pleural effusion. Assessment and Plan - Diagnosis (1) Pneumonia Qualifiers: Pneumonia type: due to unspecified organism Laterality: bilateral Lung location: lower lobe of lung Qualified Code(s): J18.9 - Pneumonia, unspecified organism Is this a current diagnosis for this admission?: Yes Plan: Chest x-ray reveals bilateral lower lobe consolidation. Blood cultures show gram-positive cocci in chains 1 bottle each set Sputum cultures pending; nonproductive cough. Influenza negative. COVID pending. Patient is provided supplemental oxygen as needed maintain saturations greater than 89%. Patient is empirically placed on IV azithromycin and Rocephin. Day #2 Scheduled and as needed nebulizer treatments. He is placed on Robitussin as needed. Pulmonary toilet is encouraged with incentive spirometer, flutter valve, early ambulation. (2) Person under investigation for COVID-19 Is this a current diagnosis for this admission?: Yes Plan: We will obtain COVID testing. D-dimer, ferritin, LDH are nml. CRP mildly elevated Provide supplemental oxygen as needed maintain saturations greater than 89%. Scheduled and as needed nebulizer treatments. Zinc, vitamin D, vitamin C, and melatonin supplementation. Encourage pulmonary toilet. Isolation precautions. (3) Hypertension Qualifiers: Hypertension type: essential hypertension Qualified Code(s): I10 - Essential (primary) hypertension Is this a current diagnosis for this admission?: Yes Plan: Resume home dose lisinopril IV hydralazine as needed for blood pressure control. Consistent carb/cardiac diet (4) Diabetes Qualifiers: Diabetes mellitus type: type 2 Diabetes mellitus usp insulin use: without lobsterman use Is this a current diagnosis for this admission?: Yes Plan: Holding oral medications while admitted. Patient is placed on a consistent carb diet. Accu-Cheks before meals and at bedtime with Humalog for sliding scale coverage. Hypoglycemia protocol in place. (5) GISELL (obstructive sleep apnea) Is this a current diagnosis for this admission?: Yes Plan: CPAP nightly and nightly. (6) Sepsis Qualifiers: Sepsis type: sepsis due to unspecified organism Sepsis acute organ dysfunction status: with acute organ dysfunction Severe sepsis acute organ dysfunction type: acute respiratory failure Acute respiratory failure type: with hypoxia Severe sepsis shock status: without septic shock Qualified Code(s): A41.9 - Sepsis, unspecified organism; R65.20 - Severe sepsis without septic shock; J96.01 - Acute respiratory failure with hypoxia Is this a current diagnosis for this admission?: Yes Plan: Sepsis, due to pneumonia (COVID versus community-acquired) and bacteremia, present on admission, evidenced by fever, tachycardia, tachypnea, leukocytosis, and pneumonia on x-ray. Patient received 2 L IV fluids at admission. As I have moderate to high suspicion of positive COVID diagnosis, will avoid fluid overload through judicious fluid resuscitation. - Time Time Spent with patient: 25-34 minutes Medications reviewed and adjusted accordingly: Yes Anticipated Discharge Disposition: Home, Self Care Anticipated Discharge Timeframe: undetermined
[2020-03-02] MEDS ORDERED: KETOROLAC TROMETHAMINE INJ/PF 30 MG/1 ML SDV IV PRN (16:12)
[2020-03-02] MEDS: AZITHROMYCIN 500 MG in DEXTROSE 5%-WATER 250 ML IV SCH (17:12)
[2020-03-02] MEDS: GEMFIBROZIL 600 MG TABLET PO SCH (17:12)
[2020-03-02] MEDS: ATORVASTATIN CALCIUM 40 MG TABLET PO SCH (21:34)
[2020-03-03] MEDS: NORMAL SALINE 1000 ML 1,000 ML IV PRN ×2 (01:25→18:09)
[2020-03-03] MEDS: ALBUTEROL SULFATE 0.083% NEB 2.5 MG/3 ML AMPUL NEB SCH ×4 (02:13→20:05)
[2020-03-03] MEDS: GEMFIBROZIL 600 MG TABLET PO SCH ×2 (07:58→17:03)
[2020-03-03] MEDS: INSULIN LISPRO 100 UNIT/ML 3 ML VIAL SUBCUT SCH ×6 (07:58→22:00)
[2020-03-03] MEDS ORDERED: INFLUENZA QUAD (6MOS+) 2020-21 VAC 0.5 ML SYR IM ONE (08:00)
[2020-03-03] MEDS ORDERED: LISINOPRIL 10 MG TABLET PO SCH (10:00)
[2020-03-03] MEDS ORDERED: (PENDING PHARMACY ID) (Rosuvastatin Calcium [Rosuvastatin Calcium] 20 MG) PO SCH (10:00)
[2020-03-03] MEDS ORDERED: EZETIMIBE 10 MG TABLET PO SCH (10:00)
[2020-03-03] MEDS ORDERED: FLUTICASONE NASAL SPRAY 50 MCG/SPRY 120 SPRAY/16 GM NASL SCH (10:00)
[2020-03-03] MEDS: ENOXAPARIN SODIUM INJ 40 MG/0.4 ML DISP.SYRIN SUBCUT SCH (10:40)
[2020-03-03] MEDS: DEXAMETHASONE SOD PHOS INJ 10 MG/1 ML VIAL IV SCH (10:40)
[2020-03-03] MEDS: CEFTRIAXONE 1 GM/D5W RTU 1 GM/50 ML RTUPB IV SCH (10:41)
[2020-03-03] MEDS: ASCORBIC ACID 500 MG TABLET PO SCH ×2 (10:43→17:03)
[2020-03-03] MEDS: ZINC SULFATE 220 MG CAPSULE PO SCH (10:43)
[2020-03-03] MEDS: CHOLECALCIFEROL (D3) 1,000 UNIT (25 MCG) TABLET PO SCH (10:43)
--- NOTE | 2020-03-03 12:57 | PDOC PROGRESS REPORT ---
Subjective Progress Note for:: 03/03/20 Subjective:: ANSHU DAN is a 44 year old male with a past medical history significant for DM 2, hypertension, hyperlipidemia, and obesity who presented to the emergency department with a complaint of 1 day of progressively worsening shortness of breath and chest discomfort upon deep inspiration and cough. He also reports nonproductive cough. Low-grade fever noted upon arrival to the emergency department. He otherwise denies chest pain, palpitations, orthopnea, abdominal pain, nausea vomiting diarrhea. He does confirm multiple coworkers have tested positive for coronavirus within the last week. Evaluation emergency department revealed sepsis with fever, tachycardia, tachypnea, leukocytosis, and PNA on CXR. He has provided IV fluids, IV Rocephin and azithromycin. He is referred to the hospitalist service for evaluation and management of the above stated complaints and findings. D3 Hospital stay 03/03/20. He was seen and examined at bedside. Afebrile. He denies any chest pain, SON, cough minimal. Appetite fair. COVID test negative. He will be moved out of the COVID unit today. Continue abx for [employer] Acquired Pneumonia. Started on with meals insulin due to elevated blood glucose. Will likely be able to switch to oral abx tomorrow and stop dexa. Reason For Visit: PNEUMONIA, SUSPECT COVID Physical Exam Vital Signs: Temp Pulse Resp BP Pulse Ox 99.6 F 97 18 140/79 H 94 03/03/20 08:20 03/03/20 08:10 03/03/20 08:10 03/03/20 08:00 03/03/20 08:10 Intake & Output 03/02/20 03/03/20 03/04/20 06:59 06:59 06:59 Intake Total 3050 5128 Balance 3050 5128 Weight 125.3 kg 125.8 kg General appearance: PRESENT: no acute distress, cooperative Head exam: PRESENT: atraumatic, normocephalic Eye exam: PRESENT: EOMI, PERRLA Ear exam: PRESENT: normal external ear exam Mouth exam: PRESENT: moist Neck exam: PRESENT: full ROM Respiratory exam: PRESENT: clear to auscultation brian, symmetrical, unlabored. ABSENT: rales, retraction Cardiovascular exam: PRESENT: RRR, +S1, +S2 Pulses: PRESENT: +2 pedal pulses bilateral GI/Abdominal exam: PRESENT: normal bowel sounds, soft. ABSENT: rebound, tenderness Extremities exam: PRESENT: full ROM Musculoskeletal exam: PRESENT: full ROM Neurological exam: PRESENT: alert, awake, oriented to person, oriented to place, oriented to time, oriented to situation Psychiatric exam: PRESENT: normal mood Skin exam: PRESENT: normal color Results Laboratory Results: 03/02/20 06:10 03/02/20 06:10 03/01/20 14:41 Blood Blood Culture (PCR) - Final 03/01/20 03/01/20 03/01/20 13:58 13:58 14:41 Creatine Kinase 55 CK-MB (CK-2) Cancelled 0.36 Troponin I Cancelled < 0.012 03/01/20 17:40 Creatine Kinase CK-MB (CK-2) Troponin I < 0.012 Impressions: Chest X-Ray 03/01/20 00:00 IMPRESSION: Bibasilar patchy airspace opacities, left greater than right. . No significant pleural effusion. Assessment and Plan - Diagnosis (1) Pneumonia Qualifiers: Pneumonia type: due to unspecified organism Laterality: bilateral Lung location: lower lobe of lung Qualified Code(s): J18.9 - Pneumonia, unspecified organism Is this a current diagnosis for this admission?: Yes Plan: Chest x-ray reveals bilateral lower lobe consolidation. Blood cultures show gram-positive cocci in chains 1 bottle each set Sputum cultures pending; nonproductive cough. Influenza negative. COVID negative O2 support as needed IV azithromycin and Rocephin. Day #2. Plan to switch to oral abx tomorrow Scheduled and as needed nebulizer treatments. He is placed on Robitussin as needed. Pulmonary toilet is encouraged with incentive spirometer, flutter valve, early ambulation. (2) Person under investigation for COVID-19 Is this a current diagnosis for this admission?: Yes Plan: - COVID NEGATIVE We will obtain COVID testing. D-dimer, ferritin, LDH are nml. CRP mildly elevated Provide supplemental oxygen as needed maintain saturations greater than 89%. Scheduled and as needed nebulizer treatments. Zinc, vitamin D, vitamin C, and melatonin supplementation. (3) Diabetes Qualifiers: Diabetes mellitus type: type 2 Diabetes mellitus senior living insulin use: without senior living use Is this a current diagnosis for this admission?: Yes Plan: started on 6 units with meals insulin. suspect hyperglycemia due to dexa. Holding oral medications while admitted. Patient is placed on a consistent carb diet. Accu-Cheks before meals and at bedtime with Humalog for sliding scale coverage. Hypoglycemia protocol in place. (4) Hypertension Qualifiers: Hypertension type: essential hypertension Qualified Code(s): I10 - Essential (primary) hypertension Is this a current diagnosis for this admission?: Yes Plan: Resume home dose lisinopril IV hydralazine as needed for blood pressure control. Consistent carb/cardiac diet (5) GISELL (obstructive sleep apnea) Is this a current diagnosis for this admission?: Yes Plan: CPAP nightly and nightly. (6) Sepsis Qualifiers: Sepsis type: sepsis due to unspecified organism Sepsis acute organ dysfunction status: with acute organ dysfunction Severe sepsis acute organ dysfunction type: acute respiratory failure Acute respiratory failure type: with hypoxia Severe sepsis shock status: without septic shock Qualified Code(s): A41.9 - Sepsis, unspecified organism; R65.20 - Severe sepsis without septic shock; J96.01 - Acute respiratory failure with hypoxia Is this a current diagnosis for this admission?: Yes Plan: Sepsis RESOLVED due to pneumonia present on admission, evidenced by fever, tachycardia, tachypnea, leukocytosis, and pneumonia on x-ray. Patient received 2 L IV fluids at admission. - Time Time Spent with patient: 25-34 minutes Anticipated Discharge Disposition: Home, Self Care Anticipated Discharge Timeframe: within 48 hours
[2020-03-03] MEDS: AZITHROMYCIN 500 MG in DEXTROSE 5%-WATER 250 ML IV SCH (18:07)
[2020-03-03] MEDS: ATORVASTATIN CALCIUM 40 MG TABLET PO SCH (22:01)
[2020-03-04] MEDS: ALBUTEROL SULFATE 0.083% NEB 2.5 MG/3 ML AMPUL NEB SCH ×2 (02:29→08:17)
[2020-03-04 06:48] LABS: ABSOLUTE BASOPHILS # (AUTO) 0.1 10^3/uL (0.0-0.2); ABSOLUTE LYMPHOCYTES (AUTO) 1.6 10^3/uL (0.5-4.7); ABSOLUTE MONOCYTES (AUTO) 0.5 10^3/uL (0.1-1.4); ABSOLUTE NEUT (AUTO) 5.9 10^3/uL (1.7-8.2); BASOPHILS % (AUTO) 0.8 % (0-2); EOSINOPHILS % (AUTO) 0.3 % (0-6); HEMATOCRIT 37.1 % (37.9-51.0); HEMOGLOBIN 12.8 g/dL (13.5-17.0); LYMPHOCYTES % (AUTO) 19.2 % (13-45); MEAN CORPUSCULAR HEMOGLOBIN 30.9 pg (27.0-33.4); MEAN CORPUSCULAR HGB CONC 34.4 g/dL (32.0-36.0); MEAN CORPUSCULAR VOLUME 90 fl (80-97); MONOCYTES % (AUTO) 6.1 % (3-13); PLATELET COUNT 237 10^3/uL (150-450); RED BLOOD COUNT 4.15 10^6/uL (4.35-5.55); RED CELL DISTRIBUTION WIDTH 14.1 % (11.5-14.0); SEGMENTED NEUTROPHILS % (AUTO) 73.6 % (42-78); TOTAL CELLS COUNTED % (AUTO) 100 %; WHITE BLOOD COUNT 8.1 10^3/uL (4.0-10.5)
[2020-03-04 07:00] LABS: ALBUMIN 3.6 g/dL (3.5-5.0); ALKALINE PHOSPHATASE 84 U/L (38-126); ANION GAP 11 (5-19); ASPARTATE AMINO TRANSFERASE 13 U/L (17-59); BILIRUBIN,DIRECT 0.4 mg/dL (0.0-0.4); BILIRUBIN,TOTAL 0.5 mg/dL (0.2-1.3); BLOOD UREA NITROGEN 19 mg/dL (7-20); CALCIUM 9.5 mg/dL (8.4-10.2); CARBON DIOXIDE 20 mmol/L (22-30); CHLORIDE 106 mmol/L (98-107); GLUCOSE 223 mg/dL (75-110); POTASSIUM 4.3 mmol/L (3.6-5.0); TOTAL PROTEIN 6.5 g/dL (6.3-8.2)
[2020-03-04] MEDS: INSULIN LISPRO 100 UNIT/ML 3 ML VIAL SUBCUT SCH ×2 (07:34)
[2020-03-04] MEDS: GEMFIBROZIL 600 MG TABLET PO SCH (07:34)
[2020-03-04] MEDS: NORMAL SALINE 1000 ML 1,000 ML IV PRN (07:36)
[2020-03-04 10:00] VITALS: BP 140/79
[2020-03-04] MEDS ORDERED: LEVOFLOXACIN 750 MG TABLET PO SCH (10:00)
--- NOTE | 2020-03-05 06:32 | PDOC DISCHARGE SUMMARY ---
Impression - Admit/DC Date/PCP Admission Date/Primary Care Provider: 03/01/20 16:44 PILAR DIAS MD Discharge Date: 03/04/20 - Discharge Diagnosis (1) Pneumonia Is this a current diagnosis for this admission?: Yes (2) Person under investigation for COVID-19 Is this a current diagnosis for this admission?: Yes (3) Diabetes Is this a current diagnosis for this admission?: Yes (4) Hypertension Is this a current diagnosis for this admission?: Yes (5) GISELL (obstructive sleep apnea) Is this a current diagnosis for this admission?: Yes (6) Sepsis Is this a current diagnosis for this admission?: Yes - Additional Information Resuscitation Status: Full Code Discharge Diet: As Tolerated Discharge Activity: Activity As Tolerated Referrals: PILAR DIAS MD [Primary Care Provider] - Follow up as needed (03-04-20- ([id number]) left message for Lizet to call patient with a follow up appt. ) Prescriptions: Cefuroxime Axetil [Ceftin 500 mg Tablet] 500 mg PO BID 5 Days #10 tablet Guaifenesin [Robitussin Syrup 200 mg/10 ml Ud Cup] 200 mg PO Q4HP PRN 14 Days #30 udc PRN Reason: Ascorbic Acid [Vitamin C 500 mg Tablet] 500 mg PO BID 30 Days #30 tablet Zinc Sulfate [Zinc-220 Capsule] 220 mg PO DAILY 30 Days #30 capsule Home Medications: Fluticasone Propionate [Flonase Nasal [place] 50 Mcg/[place] 16 gm] 1 spray NASL DAILY 06/27/16 Gemfibrozil 600 mg PO BID 06/27/16 Linagliptin [Tradjenta] 5 mg PO DAILY 06/27/16 Lisinopril 10 mg PO DAILY 06/27/16 Rosuvastatin Calcium 20 mg PO DAILY 06/27/16 Dulaglutide [Trulicity] 1.5 mg INJ FR@1000 03/02/20 Empagliflozin [Jardiance] 25 mg PO QAM 03/02/20 Ezetimibe [Zetia 10 mg Tablet] 10 mg PO DAILY 03/02/20 Glipizide [Glipizide Xl] 10 mg PO BID 03/02/20 Guaifenesin/Dextromethorphan [Mucinex Dm ER 1,200-60 mg Tab] 1 tab PO Q12 03/02/20 Ascorbic Acid [Vitamin C 500 mg Tablet] 500 mg PO BID 30 Days #30 tablet 03/04/20 Cefuroxime Axetil [Ceftin 500 mg Tablet] 500 mg PO BID 5 Days #10 tablet 03/04/20 Guaifenesin [Robitussin Syrup 200 mg/10 ml Ud Cup] 200 mg PO Q4HP PRN 14 Days #30 udc 03/04/20 Zinc Sulfate [Zinc-220 Capsule] 220 mg PO DAILY 30 Days #30 capsule 03/04/20 History of Present Illiness History of Present Illness: ANSHU DAN is a 44 year old male, with a past medical history significant for DM 2, hypertension, hyperlipidemia, and obesity who presented to the emergency department with a complaint of 1 day of progressively worsening shortness of breath and chest discomfort upon deep inspiration and cough. He also reports nonproductive cough. Low-grade fever noted upon arrival to the emergency department. He otherwise denies chest pain, palpitations, orthopnea, abdominal pain, nausea vomiting diarrhea. He does confirm multiple coworkers have tested positive for coronavirus within the last week. Evaluation emergency department revealed sepsis with fever, tachycardia, tachypnea, leukocytosis, and PNA on CXR. He has provided IV fluids, IV Rocephin and azithromycin. He is referred to the hospitalist service for evaluation and management of the above stated complaints and findings. Hospital Course Hospital Course: The patient was started on IV fluids and IV rocephin. He was also given dexamethasone for presumed COVID. His COVID test came back negative on the 2nd day of admission. he was continued on the IV antibiotics. Blood cultures came back negeative. His breathing continued to improved and patient was eventually sent home with oral abx Physical Exam Vital Signs: Temp Pulse Resp BP Pulse Ox 98.5 F 105 H 17 140/79 H 95 03/04/20 09:58 03/04/20 09:58 03/04/20 09:58 03/04/20 09:58 03/04/20 09:58 Intake & Output 03/03/20 03/04/20 03/05/20 06:59 06:59 06:59 Intake Total 5128 3100 136 Balance 5128 3100 136 Weight 125.8 kg 125.5 kg General appearance: PRESENT: no acute distress, cooperative Head exam: PRESENT: atraumatic, normocephalic Eye exam: PRESENT: EOMI, PERRLA Mouth exam: PRESENT: moist Neck exam: PRESENT: full ROM Respiratory exam: PRESENT: clear to auscultation brian, symmetrical, unlabored Cardiovascular exam: PRESENT: RRR, +S1, +S2 Pulses: PRESENT: +2 pedal pulses bilateral GI/Abdominal exam: PRESENT: normal bowel sounds, soft. ABSENT: rebound, tenderness Extremities exam: ABSENT: +2 edema Neurological exam: PRESENT: alert, awake, oriented to person, oriented to place, oriented to time Psychiatric exam: PRESENT: normal mood Skin exam: PRESENT: normal color Results Laboratory Results: WBC 8.1 10^3/uL (4.0-10.5) 03/04/20 05:43 RBC 4.15 10^6/uL (4.35-5.55) L 03/04/20 05:43 Hgb 12.8 g/dL (13.5-17.0) L 03/04/20 05:43 Hct 37.1 % (37.9-51.0) L 03/04/20 05:43 MCV 90 fl (80-97) 03/04/20 05:43 MCH 30.9 pg (27.0-33.4) 03/04/20 05:43 MCHC 34.4 g/dL (32.0-36.0) 03/04/20 05:43 RDW 14.1 % (11.5-14.0) H 03/04/20 05:43 Plt Count 237 10^3/uL (150-450) 03/04/20 05:43 Lymph % (Auto) 19.2 % (13-45) 03/04/20 05:43 [place] % (Auto) 6.1 % (3-13) 03/04/20 05:43 Eos % (Auto) 0.3 % (0-6) 03/04/20 05:43 Baso % (Auto) 0.8 % (0-2) 03/04/20 05:43 Absolute Neuts (auto) 5.9 10^3/uL (1.7-8.2) 03/04/20 05:43 Absolute Lymphs (auto) 1.6 10^3/uL (0.5-4.7) 03/04/20 05:43 Absolute Monos (auto) 0.5 10^3/uL (0.1-1.4) 03/04/20 05:43 Absolute Eos (auto) 0.0 10^3/uL (0.0-0.6) 03/04/20 05:43 Absolute Basos (auto) 0.1 10^3/uL (0.0-0.2) 03/04/20 05:43 Seg Neutrophils % 73.6 % (42-78) 03/04/20 05:43 D-Dimer 0.38 ug/mL (0.00-0.50) 03/01/20 13:58 Sodium 137.4 mmol/L (137-145) 03/04/20 05:43 Potassium 4.3 mmol/L (3.6-5.0) 03/04/20 05:43 Chloride 106 mmol/L (98-107) 03/04/20 05:43 Carbon Dioxide 20 mmol/L (22-30) L 03/04/20 05:43 Anion Gap 11 (5-19) 03/04/20 05:43 BUN 19 mg/dL (7-20) 03/04/20 05:43 Creatinine 0.70 mg/dL (0.52-1.25) 03/04/20 05:43 Est GFR ( Amer) > 60 (>60) 03/04/20 05:43 Est GFR (MDRD) Non-Af > 60 (>60) 03/04/20 05:43 Glucose 223 mg/dL (75-110) H 03/04/20 05:43 POC Glucose 232 mg/dL (70-110) H 03/04/20 06:20 Lactic Acid 1.6 mmol/L (0.7-2.1) 03/01/20 14:41 Calcium 9.5 mg/dL (8.4-10.2) 03/04/20 05:43 Ferritin 346.00 ng/mL (17.9-464.0) 03/01/20 14:41 Total Bilirubin 0.5 mg/dL (0.2-1.3) 03/04/20 05:43 Direct Bilirubin 0.4 mg/dL (0.0-0.4) 03/04/20 05:43 Neonat Total Bilirubin Not Reportable 03/04/20 05:43 Neonat Direct Bilirubin Not Reportable 03/04/20 05:43 Neonat Indirect Bili Not Reportable 03/04/20 05:43 AST 13 U/L (17-59) L 03/04/20 05:43 ALT 19 U/L (<50) 03/04/20 05:43 Alkaline Phosphatase 84 U/L (38-126) 03/04/20 05:43 Lactate Dehydrogenase 186 U/L (120-246) 03/01/20 14:41 Creatine Kinase 55 U/L (55-170) 03/01/20 13:58 CK-MB (CK-2) 0.36 ng/mL (<4.55) 03/01/20 14:41 Troponin I < 0.012 ng/mL 03/01/20 17:40 C-Reactive Protein 42.5 mg/L (<10.0) H 03/01/20 14:41 Total Protein 6.5 g/dL (6.3-8.2) 03/04/20 05:43 Albumin 3.6 g/dL (3.5-5.0) 03/04/20 05:43 Lipase 224.9 U/L (23-300) 03/01/20 14:41 COVID-19 Source See comment 03/01/20 13:58 COVID-19 (DENIS) Not Detected (Not Detect) 03/01/20 13:58 Influenza A (Rapid) NEGATIVE (NEGATIVE) 03/01/20 13:55 Influenza B (Rapid) NEGATIVE (NEGATIVE) 03/01/20 13:55 Blood Type B POSITIVE 03/01/20 17:40 Antibody Screen NEGATIVE 03/01/20 17:40 03/01/20 03/01/20 03/01/20 13:58 14:41 17:40 CK-MB (CK-2) Cancelled 0.36 Troponin I Cancelled < 0.012 < 0.012 Impressions: Chest X-Ray 03/01/20 00:00 IMPRESSION: Bibasilar patchy airspace opacities, left greater than right. . No significant pleural effusion. Plan Health Concerns: - Pneumonia Your examination indicates that you have pneumonia. This is an infection of the lung tissue, usually caused by bacteria or a virus. Symptoms include cough, fever, shaking chills, chest pain, shortness of breath, and coughing up bloody sputum. Treatment for bacterial pneumonia includes rest, antibiotics for 10 to 14 days, increasing your clear liquid intake, a cool mist humidifier at your bedside, and fever medication. Often, a repeat chest X-ray is performed in a few weeks--even if you feel better--to ascertain whether the infection has completely resolved and no underlying lung problem is present. You should call the physician if you develop persistent vomiting, high fever that does not respond to fever medication, increasing shortness of breath, confusion, or lethargy. Also, failure to improve within two to three days is an indication for re-examination. Plan of Treatment: - complete course of antibiotic treatment Time Spent: Less than 30 Minutes Stroke Is this a Stroke Patient?: No Acute Heart Failure Is this a Heart Failure Patient?: No
== END 2020-03-04 10:20 | disposition home or self-care (01) | DRG 871 ==
LOC: ER 13:17 → EH 16:44 → 3W 23:41 → 4W 03-03 10:30
PROVIDERS: ADMIT Hospitalist; ATTEND Internal Medicine
PROC: 5A09457 Assistance with Respiratory Ventilation, 24-96 Consecutive Hours, Continuous Positive Airway Pressure (ICD-10-PCS; principal; 2020-03-02)
DX: A41.9 Sepsis, unspecified organism (principal); J18.9 Pneumonia, unspecified organism; J96.01 Acute respiratory failure with hypoxia; R65.20 Severe sepsis without septic shock; I10 Essential (primary) hypertension; E66.9 Obesity, unspecified; E86.0 Dehydration; E78.5 Hyperlipidemia, unspecified; G47.33 Obstructive sleep apnea (adult) (pediatric); E11.65 Type 2 diabetes mellitus with hyperglycemia; Z79.84 Long term (current) use of oral hypoglycemic drugs; Z20.828 Contact with and (suspected) exposure to other viral communicable diseases; Z88.1 Allergy status to other antibiotic agents
CPT/HCPCS: 36415; 71045; 80048; 80053; 82550; 82553; 82728; 82962; 83605; 83615; 83690; 84484; 85025; 85027; 85379; 86140; 86850; 86900; 86901; 87040; 87077; 87150; 87186; 87635; 87804; 93005; 93010; 94640; 94660; 94799; 96361; 96365; 96368; 99285; C9803; J0456; J0696; J1100; J1650; J1815; J1885; J3490; J7030; J7060; J7613